=== PATIENT | female | born 1935 | race Caucasian/White ===

== ENCOUNTER 2017-01-23 11:18 | Inpatient (IN) | payer MEDICARE, OTHER ==
--- NOTE | ~2017-01-23 | CO ---
Unit #: [id number] #: [id number] Patient: JADE JUAN [id number] [facility] [address]. [place], [place] [address] [id number] MR#: [id number] NAME: JADE JUAN. ROOM: 578 Age: 81 Sex: F Admission Date: 01/23/2017 : 1935 Attending Physician: Horacio Crystal M.D. Primary Care Physician: Wesley Booker M.D. CONSULTATION REPORT HISTORY OF PRESENT ILLNESS This is an 81-year-old female who was actually admitted for an outpatient EGD and colonoscopy per Dr. Crystal. We were asked to consult for elevated blood pressure. She has a history of postural hypotension, gastritis, esophagitis, gastric reflux disease, osteoporosis, osteoarthritis, breast cancer to the left breast status post lumpectomy and a systolic murmur. She was recently seen at [facility] and was discharged on 01/15/17. She had a syncopal episode at [facility]. Her family took her to [facility]. She was diagnosed with a UTI. Medications were adjusted. I do not have any records from this. This is just from what the family reported to me. She was brought to [facility] for an outpatient EGD and colonoscopy for recent constipation and abdominal cramping. Cardiology was asked to see her for her blood pressure. She had a systolic blood pressure that ranged from 232 to 265 with the diastolic blood pressure ranging from 103 to 132. When I saw her, her blood pressure was 214/105. Orthostatics were done; lying flat her blood pressure after 10 mg of hydralazine was 197/107 and her heart rate was 67, sitting upright she was 199/98 and her heart rate was 68. The patient follows with Dr. Cortez for cardiology. PAST SURGICAL HISTORY 1. Tonsillectomy. 2. Left lumpectomy status post breast cancer. 3. Left hip replacement. 4. Several EGDs and colonoscopies back in 2003 and 2010. HOME MEDICATIONS 1. Primatene 10 mg t.i.d. 2. Protonix 20 mg daily. 3. Levothyroxine 88 mcg daily. 4. MiraLAX 17 grams daily as needed for constipation. 5. Alendronate sodium 70 mg every week for osteoporosis. 6. Ammonium lactate for dry skin topical treatment. 7. Florinef 0.1 mg daily. 8. Aspirin 81 mg daily. 9. Calcium plus vitamin D tablets 600 mg 1 t.i.d. 10. Cyclosporin eyedrops 100 mg daily, 2 drops to each eye. 11. Glucosamine/chondroitin capsules 1 capsule t.i.d. 12. Multivitamin 1 tablet daily. ALLERGIES No known allergies. Unit #: [id number] #: [id number] Patient: JADE JUAN FAMILY HISTORY Noncontributory. SOCIAL HISTORY She lives alone and she is a never-smoker. She denies any alcohol or illicit drug use. Apparently she still drives. She says she is fairly active. A lot of the questions she has to defer to her family to answer; however, she is alert and oriented. REVIEW OF SYSTEMS The only complaint she had today was dizziness, which is chronic in nature for her. She states she gets dizzy quite often, all the time. Also, complaints of an overactive bladder, having to void quite frequently, which is also chronic for her. As noted above in the HPI, she did have a recent syncopal episode in January of 2017 and was admitted to [facility] with a UTI. PHYSICAL EXAMINATION VITAL SIGNS: Pulse was 69. Blood pressure on arrival to the endoscopy unit was 162/101. On my examination before medication she was 214/105. Temperature was 96.8. Weight is 59 kg. O2 sats were 100% on 2 liters of oxygen. GENERAL: She appears an elderly female in no acute distress, although somewhat anxious. LUNGS: Clear to auscultation. NECK: Supple with no JVD noted. No thyromegaly noted. CARDIOVASCULAR: She is in a regular rate and rhythm with S1, S2 noted. She does have a 2/6 systolic ejection murmur heard best at the apex. ABDOMEN: Soft. No hepatojugular reflux noted. No hepatomegaly. Bowel sounds positive. EXTREMITIES: Extremities show no edema. HEENT: Pupils are equal, round and reactive to light and accommodation with extraocular movements intact. Head is normocephalic, atraumatic. NEUROLOGIC: She is alert and oriented x3 and answers questions appropriately and follows commands. DIAGNOSTIC TESTING LABORATORY: STAT labs were drawn this afternoon before I interviewed her, but they are pending. I do not have any labs resulted. CARDIOVASCULAR: She did have a 12-lead EKG on 01/23/17, which showed normal sinus rhythm and a prolonged Q-T. She does appear to have some mild LVH. QTc was 486. Her ventricular rate was 64 beats per minute. Of note, recent cardiac testing included Holter on 07/26/16 showing frequent supraventricular ectopy, no pauses, no significant ventricular ectopy. Lexiscan Cardiolite on 07/26/16 was normal with an EF of 83%. Old EKG on 07/27/16 showed normal sinus rhythm. Two-D echocardiogram from last admission was reviewed and showed an EF of 55% to 60%, normal wall motion, impaired relaxation, aayz-oe-swrdshkf aortic regurgitation but no aortic stenosis seen. She did have turbulent flow noted, which probably accounts for the heart murmur. IMPRESSION 1. Malignant hypertension. 2. Postural hypotension. Unit #: [id number] #: [id number] Patient: JADE JUAN PLAN Her EGD and colonoscopy were temporarily cancelled due to her malignant hypertension. She did receive 10 mg of IV hydralazine. She also had orthostatics checked lying and sitting only, as noted above in the HPI. Plan was discussed per Dr. Dickson with Dr. Crystal, and we will proceed with scheduled procedures, as she has been NPO and colon prepped. Cardiology will be very conservative with her antihypertensive medications, as she tends to bottom out. On last admission, of note, her blood pressure ranged from as low as 82/62 and as high as 210/90. We will put her on p.r.n. hydralazine at a very low dose of 2.5 mg to 5 mg q.4 hours if needed for systolic above 160; however, Dr. Dickson felt that scheduled antihypertensives would be too much for her system to take. We will check a CBC and BMP tomorrow morning and obtain records from [facility] from her recent admission there. Post procedure she will need to be in a telemetry bed, and we will follow up with her. Also, please note that Dr. Dickson did discuss with anesthesiology about the need for IV medicines to be extremely cautious and her blood pressure is extremely elevated during the procedure, she would need conservative medication administration to not drop her blood pressure too much. Post procedure we will continue to follow her. Thank you for this consultation. Dictated by... Tori Whittakre APRN for Talia Jarrell TD: 01/24/2017 13:27 JOB #: [id number] CONSULTATION REPORT Page 1 of 1 X X CONSULTATION REPORT
--- NOTE | ~2017-01-23 | OR ---
Unit #: [id number] #: [id number] Patient: JADE JUAN [id number] [address] [place], [place] [address] [id number] Emiliano MR#: [id number] NAME: JADE JUAN. ROOM: 578 Date of Procedure: 01/23/2017 Admission Date: 01/23/2017 Surgeon: Horacio Crystal M.D. : 1935 Attending Physician: Horacio Crystal M.D. Primary Care Physician: Wesley Booker M.D. OPERATIVE REPORT PROCEDURE PERFORMED Esophagogastroduodenoscopy with biopsy, colonoscopy with polypectomy, colonoscopy with biopsy. INDICATIONS FOR PROCEDURE The patient with significant generalized abdominal pain, severe constipation, weight loss, GERD symptoms, as well as epigastric pain, undergoing evaluation with upper endoscopy and colonoscopy. Her CT scan recently had been unremarkable. MEDICATIONS Monitored anesthesia. POSTOPERATIVE FINDINGS 1. Normal esophagus. 2. Mild gastritis. Biopsies taken. 3. Normal duodenum and distal duodenum. 4. Colonoscopy completed to cecum. Prep was excellent. 5. Polyp, 6 mm, transverse colon, snared and sent for histopathology. 6. Random colon biopsies taken given her symptoms. 7. Small hemorrhoids and mild diverticulosis. PLAN Symptomatic treatment. Follow up on pathology report. DESCRIPTION OF PROCEDURE The patient was explained of the procedure, risks, and benefits along with risks and benefits of anesthesia. She was brought to the endoscopy room. Propofol anesthesia was given. Bite block was placed. The scope was passed down the mouth into the esophagus, stomach, duodenum, and distal duodenum. Findings as described. Biopsies taken. Gently, I pulled the scope out of the patient's mouth. At this time, she was turned around and repositioned for colonoscopy. Rectal exam was done, which was normal. Colonoscope was lubricated, passed up the rectum, advanced under direct vision all the way to the cecum. Cecum was identified by ileocecal valve and appendiceal orifice. At this point, I started to pull the scope out carefully looking. Polyp seen in transverse colon was snared and sent for histopathology. Rest of the colonic mucosa was normal. Random biopsies were taken also. I retroflexed in the rectum, small hemorrhoids seen. Scope was gently Unit #: [id number] #: [id number] Patient: JADE JUAN pulled out. She tolerated it well. No major complications were seen. Dictated by... Talia Christy/gillian TD: 01/23/2017 22:59 JOB #: [id number] OPERATIVE REPORT Page 1 of 1 X Horacio Crystal MD X PROCEDURE OPERATIVE NOTE
--- NOTE | ~2017-01-23 | EKG ---
PATIENT: JADE JUAN UNIT #: [id number] Ventricular Rate: 64 BPM Atrial Rate: 64 BPM P-R Interval: 168 ms QRS Duration: 86 ms Q-T Interval: 472 ms QTC Calculation(Bezet): 486 ms Calculated R [place]: 23 degrees Calculated T [place]: 67 degrees Diagnosis Line: Normal sinus rhythm Diagnosis Line: Prolonged QT Diagnosis Line: Abnormal ECG Diagnosis Line: When compared with ECG of 26-JUL-2016 06:06, Diagnosis Line: No significant change was found Diagnosis Line: Confirmed by SHIVA SHARMA MD ([id number]) on 01/25/2017 Diagnosis Line: 7:41:10 AM INTERPRETING MD: ZACHARY HAWKINS
[~2017-01-23 11:18] MED LIST: FLORINEF ACETA0.1 MG PO; MOBIC PO; PAIN RELIEF325 M1 PO
[2017-01-23] MEDS ORDERED: CALCIUM + D 6001 TA1 PO (12:16)
[2017-01-23 15:25] LABS: BASOPHIL% 0.5 % (0-2.5); DIFF IND NO; EOSINOPHIL% 0.3 % (0.0-7.0); HEMATOCRIT 38.4 % (35.0-45.0); HEMOGLOBIN 12.9 gm/dL (12.0-16.0); LYMPHOCYTE% 24.9 % (17.0-45.0); MEAN CELL VOLUME 88.3 FL (83-96); MEAN CORPUSCULAR HEMOGLOBIN 29.5 PG (28-34); MEAN CORPUSCULAR HGB CONC 33.4 g/dL (30-36); MEAN PLATELET VOLUME 7.5 FL (6.5-11.5); MONOCYTE# 0.6 X10e3 (0-1.0); MONOCYTE% 7.3 % (3.0-12.0); NEUTROPHIL# 5.4 X10e3 (1.5-7.1); PLATELET COUNT 259 X10e3 (140-420); RED BLOOD COUNT 4.35 X10e (3.90-5.30); RED CELL DISTRIBUTION WIDTH 14.2 % (11.0-15.5)
[2017-01-23 16:29] LABS: ALBUMIN SERUM 4.4 g/dL (3.5-5.0); ALKALINE PHOSPHATASE 45 U/L (32-92); ALT (SGPT) 11 U/L (10-40); AST (SGOT) 19 U/L (10-42); BILIRUBIN,TOTAL 0.7 mg/dL (0.2-2.0); BLOOD UREA NITROGEN 11 mg/dL (9-23); BUN/CREATININE RATIO 15.71; CALCIUM SERUM 9.5 mg/dL (8.4-10.2); CARBON DIOXIDE 26 mmol/L (22-31); CHLORIDE 106 mmol/L (100-111); CK TOTAL 41 IU/L (26-140); CREATININE SERUM 0.7 mg/dL (0.6-1.4); GLOM FILT RATE Estimated ABOVE60 mL/min (>60); GLUCOSE FASTING 87 mg/dL (70-110); POTASSIUM 3.5 mmol/L (3.5-5.1); PROTEIN TOTAL SERUM 7.1 g/dL (6.0-8.3); SODIUM 142 mmol/L (135-145)
[2017-01-24 08:07] LABS: BASOPHIL# 0.1 X10e3 (0-0.3); BASOPHIL% 0.7 % (0-2.5); EOSINOPHIL# 0.2 X10e3 (0-0.7); EOSINOPHIL% 1.7 % (0.0-7.0); HEMATOCRIT 35.2 % (35.0-45.0); HEMOGLOBIN 11.9 gm/dL (12.0-16.0); LYMPHOCYTE# 2.5 X10e3 (1.0-3.5); LYMPHOCYTE% 27.2 % (17.0-45.0); MEAN CORPUSCULAR HEMOGLOBIN 29.4 PG (28-34); MEAN CORPUSCULAR HGB CONC 33.8 g/dL (30-36); MEAN PLATELET VOLUME 7.3 FL (6.5-11.5); MONOCYTE# 0.7 X10e3 (0-1.0); MONOCYTE% 8.2 % (3.0-12.0); NEUTROPHIL# 5.7 X10e3 (1.5-7.1); NEUTROPHIL% 62.2 % (40-75); PLATELET COUNT 258 X10e3 (140-420); RED BLOOD COUNT 4.04 X10e (3.90-5.30); RED CELL DISTRIBUTION WIDTH 14.1 % (11.0-15.5); WHITE BLOOD COUNT 9.1 X10e3 (4.0-10.5)
[2017-01-24 08:10] LABS: DIFF IND NO
[2017-01-24 09:18] LABS: BLOOD UREA NITROGEN 15 mg/dL (9-23); BUN/CREATININE RATIO 16.66; CALCIUM SERUM 9.4 mg/dL (8.4-10.2); CARBON DIOXIDE 26 mmol/L (22-31); CHLORIDE 108 mmol/L (100-111); CREATININE SERUM 0.9 mg/dL (0.6-1.4); GLOM FILT RATE Estimated ABOVE60 mL/min (>60); GLUCOSE FASTING 100 mg/dL (70-110); SODIUM 142 mmol/L (135-145)
[2017-01-24 09:24] LABS: POTASSIUM 2.7 mmol/L (3.5-5.1)
[2017-01-24 16:32] LABS: CALCIUM SERUM 9.1 mg/dL (8.4-10.2); GLOM FILT RATE Estimated 53.2 mL/min (>60); POTASSIUM 3.7 mmol/L (3.5-5.1)
[2017-04-12] MEDS ORDERED: PROAMATINE10 MG PO (09:42)
[2017-04-12] MEDS ORDERED: PROTONIX20 MG PO (09:42)
[2017-04-12] MEDS ORDERED: LEVOXYL88 MC1 PO (09:43)
[2017-04-12] MEDS ORDERED: MIRALAX17 G2 PO (09:43)
[2017-04-12] MEDS ORDERED: SKIN TREATMENT225 GM TOP (09:44)
[2017-04-12] MEDS ORDERED: ALENDRONATE SOD70 MG PO (09:44)
== END 2017-01-25 19:20 | disposition home or self-care (01) | DRG 305 ==
LOC: COPS 11:18 → C5C 14:30
PROVIDERS: Internal Medicine; Internal Medicine Cardiovascular Disease
PROC: 0DB68ZX Excision of Stomach, Via Natural or Artificial Opening Endoscopic, Diagnostic (ICD-10-PCS; principal; 2017-01-23 13:00)
PROC: 0DBL8ZX Excision of Transverse Colon, Via Natural or Artificial Opening Endoscopic, Diagnostic (ICD-10-PCS; 2017-01-23 13:00)
PROC: 0DBE8ZX Excision of Large Intestine, Via Natural or Artificial Opening Endoscopic, Diagnostic (ICD-10-PCS; 2017-01-23 16:27)
DX: I10 Essential (primary) hypertension (principal); I35.1 Nonrheumatic aortic (valve) insufficiency; D12.3 Benign neoplasm of transverse colon; Z96.642 Presence of left artificial hip joint; Z85.3 Personal history of malignant neoplasm of breast; Z79.82 Long term (current) use of aspirin; I95.1 Orthostatic hypotension; K59.00 Constipation, unspecified; R63.4 Abnormal weight loss; K29.70 Gastritis, unspecified, without bleeding; K64.8 Other hemorrhoids; K57.30 Diverticulosis of large intestine without perforation or abscess without bleeding; E87.6 Hypokalemia
CPT/HCPCS: 80048; 80053; 82550; 83735; 84484; 85025; 88305; 88312; 93005; J0360

== ENCOUNTER → 2017-02-27 | Outpatient (CLI) | payer MEDICARE, OTHER ==
[~2017-02-27] MED LIST changes: +ACETAMINOPHEN325 MG PO; +ALDACTONE25 MG PO; +ALENDRONATE SOD70 MG PO; +AMIODARONE HCL200 MG PO; +AMITIZA24 MCG PO; +AMITIZA8 MCG PO; +AMOXICILLIN PO; +BENTYL10 M1 PO; +CALCIUM + D 6001 TA1 PO; +CELEXA10 M1 PO; +CLOPIDOGREL75 MG PO; +CYCLOSPORINE 100 MG/ML OU; +FLORINEF0.1 MG PO; +GLUCOSAMINE CH1 EAC5 PO; +HYDROCODON-ACE1 EAC7 PO; +KCL PO; +LEVOXYL88 MC1 PO; +LINZESS145 MCG PO; +LO-DOSE ASPIRIN81 M1 PO; +MIRALAX17 G2 PO; +MULTI VITAMIN1 EACH PO; +NORVASC10 MG PO; +PROAMATINE10 MG PO; +PROTONIX20 MG PO; +SKIN TREATMENT225 GM TOP; +TED HOSE
[2017-02-27 16:13] LABS: BASOPHIL# 0.1 X10e3 (0-0.3); BASOPHIL% 0.6 % (0-2.5); EOSINOPHIL% 0.6 % (0.0-7.0); HEMOGLOBIN 12.1 gm/dL (12.0-16.0); LYMPHOCYTE# 2.1 X10e3 (1.0-3.5); LYMPHOCYTE% 25.2 % (17.0-45.0); MEAN CELL VOLUME 87.8 FL (83-96); MEAN CORPUSCULAR HEMOGLOBIN 29.6 PG (28-34); MEAN CORPUSCULAR HGB CONC 33.7 g/dL (30-36); MEAN PLATELET VOLUME 7.5 FL (6.5-11.5); MONOCYTE# 0.6 X10e3 (0-1.0); MONOCYTE% 7.3 % (3.0-12.0); NEUTROPHIL# 5.5 X10e3 (1.5-7.1); NEUTROPHIL% 66.3 % (40-75); PLATELET COUNT 277 X10e3 (140-420); RED CELL DISTRIBUTION WIDTH 13.9 % (11.0-15.5); WHITE BLOOD COUNT 8.3 X10e3 (4.0-10.5)
[2017-02-27 16:19] LABS: DIFF IND NO; URINE APPEARANCE CLEAR; URINE BILIRUBIN NEG (NEG); URINE BLOOD TRACE-INTACT (NEG); URINE COLOR YELLOW; URINE GLUCOSE NEG (NORM); URINE KETONE TRACE (NEG); URINE LEUKOCYTE ESTERASE 1+ (NEG); URINE NITRATE NEG (NEG); URINE PH 5.5 (5-8); URINE PROTEIN NEG (NEG); URINE SPECIFIC GRAVITY 1.015 (1.003-1.035)
[2017-02-27 16:20] LABS: MICRO INDICATED? YES
[2017-02-27 16:25] LABS: URINE BACTERIA 1+ (NEG); URINE RBC 0-2 /[HPF] (0-2); URINE WBC 25-50 /[HPF] (0-5)
[2017-02-27 16:26] LABS: URINE SQUAMOUS EPITHELIAL CELL FEW /[HPF]
[2017-02-27 16:32] LABS: BUN/CREATININE RATIO 22.72; CALCIUM SERUM 8.8 mg/dL (8.4-10.2); CREATININE SERUM 1.1 mg/dL (0.6-1.4); GLOM FILT RATE Estimated 47.1 mL/min (>60); POTASSIUM 3.5 mmol/L (3.5-5.1)
== END | disposition home or self-care (01) ==
LOC: SLAB 15:39
PROVIDERS: Internal Medicine Nephrology
DX: E55.9 Vitamin D deficiency, unspecified (principal); N18.3 Chronic kidney disease, stage 3 (moderate)
CPT/HCPCS: 36415; 80048; 81003; 82306; 85025

== ENCOUNTER → 2017-03-05 | Outpatient (CLI) | payer MEDICARE, OTHER | END | disposition home or self-care (01) | LOC: SLAB 13:52 | DX: N39.0 Urinary tract infection, site not specified (principal) | CPT/HCPCS: 36415; 87086 ==

== ENCOUNTER → 2017-03-20 | Outpatient (CLI) | payer MEDICARE, OTHER ==
[2017-03-20 14:15] LABS: BASOPHIL% 0.6 % (0-2.5); EOSINOPHIL# 0.1 X10e3 (0-0.7); EOSINOPHIL% 0.9 % (0.0-7.0); HEMATOCRIT 37.1 % (35.0-45.0); HEMOGLOBIN 12.5 gm/dL (12.0-16.0); LYMPHOCYTE# 2.2 X10e3 (1.0-3.5); LYMPHOCYTE% 26.7 % (17.0-45.0); MEAN CELL VOLUME 87.8 FL (83-96); MEAN CORPUSCULAR HEMOGLOBIN 29.6 PG (28-34); MEAN CORPUSCULAR HGB CONC 33.7 g/dL (30-36); MEAN PLATELET VOLUME 7.7 FL (6.5-11.5); MONOCYTE# 0.6 X10e3 (0-1.0); NEUTROPHIL# 5.4 X10e3 (1.5-7.1); NEUTROPHIL% 64.8 % (40-75); PLATELET COUNT 241 X10e3 (140-420); RED BLOOD COUNT 4.22 X10e (3.90-5.30); RED CELL DISTRIBUTION WIDTH 13.9 % (11.0-15.5); WHITE BLOOD COUNT 8.3 X10e3 (4.0-10.5)
[2017-03-20 14:21] LABS: DIFF IND NO
[2017-03-20 14:33] LABS: BUN/CREATININE RATIO 27.77; CALCIUM SERUM 9.2 mg/dL (8.4-10.2); CREATININE SERUM 0.9 mg/dL (0.6-1.4); POTASSIUM 3.6 mmol/L (3.5-5.1)
[2017-03-20 15:39] LABS: URINE APPEARANCE CLEAR; URINE BILIRUBIN NEG (NEG); URINE BLOOD TRACE-INTACT (NEG); URINE COLOR YELLOW; URINE GLUCOSE NEG (NORM); URINE KETONE NEG (NEG); URINE LEUKOCYTE ESTERASE 2+ (NEG); URINE NITRATE NEG (NEG); URINE PH 6.5 (5-8); URINE PROTEIN NEG (NEG); URINE UROBILINOGEN 0.2 MG/DL (NORM)
[2017-03-20 15:53] LABS: MICRO INDICATED? YES
[2017-03-20 17:33] LABS: URINE BACTERIA 1+ (NEG); URINE RBC 0-2 /[HPF] (0-2)
== END | disposition home or self-care (01) ==
LOC: SLAB 13:47
PROVIDERS: Internal Medicine Nephrology
DX: N18.3 Chronic kidney disease, stage 3 (moderate) (principal); E55.9 Vitamin D deficiency, unspecified
CPT/HCPCS: 36415; 80048; 81003; 82306; 85025

== ENCOUNTER 2017-04-07 11:42 | Emergency (ER) | payer MEDICARE, OTHER ==
--- NOTE | ~2017-04-07 | CT4 ---
[facility] A Service of [facility] RADIOLOGY TEXT RESULTS PATIENT: JADE JUAN LOCATION: [facility] : 37 UNIT #: [id number] AGE: [address]: Azeb Tracy MD SEX: F ORDER DR: [id number] [facility]. [place], [place] [address] [id number] MR#: [id number] Acc #: [id number] NAME: JADE JUAN : 1935 SEX: F STUDY DATE/TIME: 04/07/2017 13:53 UNIT: [facility] ROOM: STUDY DESCRIPTION: CT Abd and Pelv Wo Cont Attending Physician: Azeb Tracy M.D. Ordering Physician: Azeb Tracy M.D. Primary Care Physician: Wesley Booker M.D. MEDICAL IMAGING REPORT This report is preliminary unless electronic signature is present EXAM CT abdomen and pelvis without contrast INDICATION Abdominal pain, weight loss for 3 weeks which is getting worse. COMPARISON 07/16/2016 Axial 3 mm images were obtained through the abdomen and pelvis with oral contrast only. This CT exam was performed with one or more of the following radiation dose reduction techniques: automatic exposure control, adjustment of mA and/or kV according to patient size, and iterative reconstruction. FINDINGS The lung bases are clear. The gallbladder contains a peripherally calcified stone measuring 15 mm in diameter. The gallbladder is otherwise normal. The liver, spleen, pancreas and adrenal glands are normal. The left kidney is normal. The right kidney has a prominent renal pelvis but the ureter is normal in size and there is no hydronephrosis visible. There is an infrarenal abdominal aortic aneurysm measuring 3.7 cm in diameter that is unchanged from 07/25/2016. The bowel is normal. The bladder, uterus and adnexal regions are normal and there is a left hip prosthesis present. The bones are unremarkable. IMPRESSION 1. Stable aortic aneurysm measuring about 3.7 cm in diameter. 2. There is no bowel obstruction or inflammation. No mass is visible. 3. A 15 mm gallstone. 4. Otherwise normal. [facility] A Service of [facility] RADIOLOGY TEXT RESULTS PATIENT: JADE JUAN LOCATION: [facility] : 37 UNIT #: [id number] AGE: [address]: Azeb Tracy MD SEX: F ORDER DR: Dictated by... Caleb Martinez M.D. THIS IS AN ELECTRONICALLY VERIFIED REPORT Caleb Martinez M.D. at 04/08/2017 7:27 AM DERIAN/lex TD: 04/07/2017 22:56 JOB #: [id number] MEDICAL IMAGING REPORT Page 1 of 1 COPY
[~2017-04-07 11:42] MED LIST changes: -ACETAMINOPHEN325 MG PO; -ALDACTONE25 MG PO; -ALENDRONATE SOD70 MG PO; -AMIODARONE HCL200 MG PO; -AMITIZA24 MCG PO; -AMITIZA8 MCG PO; -AMOXICILLIN PO; -BENTYL10 M1 PO; -CELEXA10 M1 PO; -CLOPIDOGREL75 MG PO; -CYCLOSPORINE 100 MG/ML OU; -FLORINEF0.1 MG PO; -GLUCOSAMINE CH1 EAC5 PO; -HYDROCODON-ACE1 EAC7 PO; -KCL PO; -LEVOXYL88 MC1 PO; -LINZESS145 MCG PO; -LO-DOSE ASPIRIN81 M1 PO; -MIRALAX17 G2 PO; -MULTI VITAMIN1 EACH PO; -NORVASC10 MG PO; -PROAMATINE10 MG PO; -PROTONIX20 MG PO; -SKIN TREATMENT225 GM TOP; -TED HOSE
[2017-04-07 12:47] LABS: BASOPHIL# 0.1 X10e3 (0-0.3); BASOPHIL% 0.8 % (0-2.5); EOSINOPHIL# 0.1 X10e3 (0-0.7); EOSINOPHIL% 0.9 % (0.0-7.0); HEMOGLOBIN 12.9 gm/dL (12.0-16.0); LYMPHOCYTE# 1.8 X10e3 (1.0-3.5); LYMPHOCYTE% 23.2 % (17.0-45.0); MEAN CELL VOLUME 87.9 FL (83-96); MEAN CORPUSCULAR HEMOGLOBIN 29.1 PG (28-34); MEAN CORPUSCULAR HGB CONC 33.1 g/dL (30-36); MEAN PLATELET VOLUME 7.4 FL (6.5-11.5); MONOCYTE# 0.5 X10e3 (0-1.0); NEUTROPHIL# 5.5 X10e3 (1.5-7.1); NEUTROPHIL% 69.1 % (40-75); PLATELET COUNT 240 X10e3 (140-420); RED BLOOD COUNT 4.43 X10e (3.90-5.30); RED CELL DISTRIBUTION WIDTH 13.9 % (11.0-15.5)
[2017-04-07 13:03] LABS: DIFF IND NO
[2017-04-07 13:11] LABS: ALBUMIN SERUM 4.4 g/dL (3.5-5.0); BILIRUBIN, DIRECT 0.1 mg/dL (0.0-0.2); BILIRUBIN,INDIRECT 0.8 mg/dL (0.0-0.9); BILIRUBIN,TOTAL 0.9 mg/dL (0.2-2.0); BUN/CREATININE RATIO 20.83; CALCIUM SERUM 9.1 mg/dL (8.4-10.2); CREATININE SERUM 1.2 mg/dL (0.6-1.4); GLOM FILT RATE Estimated 42.4 mL/min (>60); POTASSIUM 3.8 mmol/L (3.5-5.1); PROTEIN TOTAL SERUM 7.3 g/dL (6.0-8.3)
[2017-04-07 13:49] LABS: URINE SOURCE CLEAN CATCH
[2017-04-07 13:56] LABS: URINE APPEARANCE CLEAR; URINE BILIRUBIN NEG (NEG); URINE BLOOD TRACE (NEG); URINE COLOR YELLOW; URINE GLUCOSE NEG (NEG); URINE KETONE NEG (NEG); URINE LEUKOCYTE ESTERASE 3+ (NEG); URINE NITRATE NEG (NEG); URINE PROTEIN NEG (NEG)
[2017-04-07 13:57] LABS: CULTURE INDICATED? YES; URBCS1 AUWI 0-2 /[HPF] (0-2); URINE BACTERIA AUWI NEG (NEGATIVE); URINE SQUAMOUS EPITHELIAL CELL OCC /[HPF]; UWBCS1 AUWI 25-50 (0-5)
[2017-04-12] MEDS ORDERED: PROAMATINE10 MG PO (09:42)
[2017-04-12] MEDS ORDERED: PROTONIX20 MG PO (09:42)
[2017-04-12] MEDS ORDERED: LEVOXYL88 MC1 PO (09:43)
[2017-04-12] MEDS ORDERED: MIRALAX17 G2 PO (09:43)
[2017-04-12] MEDS ORDERED: ALENDRONATE SOD70 MG PO (09:44)
[2017-04-12] MEDS ORDERED: SKIN TREATMENT225 GM TOP (09:44)
== END 2017-04-07 16:42 | disposition home or self-care (01) ==
LOC: CED 11:42
PROVIDERS: Student in an Organized Health Care Education/Training Program
DX: K80.70 Calculus of gallbladder and bile duct without cholecystitis without obstruction (principal); I10 Essential (primary) hypertension; Z98.890 Other specified postprocedural states; Z79.899 Other long term (current) drug therapy
CPT/HCPCS: 36415; 74176; 80048; 80076; 81003; 82150; 83605; 83690; 85025; 87086; 96361; 96374; 96375; 99284; C9113; J2270; J2405

== ENCOUNTER 2017-04-12 09:49 | Observation (INO) | payer MEDICARE, OTHER ==
--- NOTE | ~2017-04-12 | EKG ---
PATIENT: JADE JUAN UNIT #: [id number] Ventricular Rate: 53 BPM Atrial Rate: 53 BPM P-R Interval: 178 ms QRS Duration: 82 ms Q-T Interval: 536 ms QTC Calculation(Bezet): 502 ms P [place]: 68 degrees Calculated R [place]: 8 degrees Calculated T [place]: 58 degrees Diagnosis Line: Sinus bradycardia Diagnosis Line: Otherwise normal ECG Diagnosis Line: When compared with ECG of 23-JAN-2017 14:57, Diagnosis Line: No significant change was found Diagnosis Line: Confirmed by SHIVA SHARMA MD ([id number]) on 04/14/2017 Diagnosis Line: 4:30:04 PM INTERPRETING MD: ZACHARY HAWKINS
--- NOTE | ~2017-04-12 | CO ---
Unit #: [id number] #: [id number] Patient: JADE JUAN [id number] [place], [place] [address] [id number] I MR#: [id number] NAME: JADE JUAN ROOM: 46 Age: 82 Sex: F Admission Date: 04/12/2017 : 1935 Attending Physician: Chaitanya Blunt M.D. Primary Care Physician: Macarena Doctor Not In System Consultation Date: 04/12/2017 CONSULTATION REPORT REASON FOR CONSULTATION Hypertension and syncope. HISTORY OF PRESENT ILLNESS The patient is an 82-year-old female with past medical history of postural hypotension, hypertension, GERD, osteoporosis, osteoarthritis, breast cancer, who was admitted by Dr. Blunt following laparoscopic cholecystectomy. The patient states that she has had about a six month history of abdominal pain that has been intermittent in nature. She was seen in the emergency department on April 07, 2017. A CT of the abdomen and pelvis was done and showed a 15 mm gallstone. She was discharged home with surgery followup. She underwent laparoscopic cholecystectomy today. Postoperatively the patient complained of feeling like she would "pass out." She also had elevated blood pressure, I was told. Blood pressures in [facility] have ranged from 146 to 166 over 68 to 89. Per my discussion with nursing, she received labetalol and hydralazine intraoperatively. Most recent blood pressure is 166/74. The patient states that she has had feeling of lightheadedness and syncope for at least several months. She was hospitalized at [facility] following a syncopal episode in January. She was scheduled for EGD and colonoscopy January 23, 2017. Blood pressure was noted to be high and so Cardiology was consulted. Per their note she has a history of postural hypotension. She has seen Dr. Dickson as an outpatient regarding this issue as well. She denies any current chest pain. No feelings of lightheadedness. No fever. No cough or cold symptoms. Abdominal pain is controlled. No change in her weight. PAST MEDICAL HISTORY 1. Admission to [facility] January 23, 2017 for EGD and colonoscopy. She was seen by Cardiology regarding hypertension. 2. History of postural hypotension. 3. GERD. 4. Osteoporosis. 5. Osteoarthritis. 6. Breast cancer status post lumpectomy. 7. Admission to [facility] January 15, 2017 for syncope. 8. Per Cardiology note the patient had a 2D echo in 2016 that showed an ejection fraction of 55% to 60% with mild to moderate aortic regurgitation but no aortic stenosis. 9. Cardiolite December 26, 2015 showed no stress-induced ischemia. EF was calculated to be 83%. Unit #: [id number] #: [id number] Patient: JADE JUAN PAST SURGICAL HISTORY 1. EGD and colonoscopy. 2. Tonsillectomy. 3. Left breast lumpectomy. 4. Left hip surgery. SOCIAL HISTORY The patient lives alone. There is no tobacco or alcohol use. FAMILY HISTORY Family history is notable for her dad having a stroke. ALLERGIES No known allergies. HOME MEDICATIONS 1. Midodrine 10 mg t.i.d. 2. Protonix 20 mg daily. 3. Levothyroxine 112 mcg daily. 4. MiraLAX 17 g daily p.r.n. 5. Alendronate 70 mg weekly. 6. Ammonium lactate daily p.r.n. 7. Florinef 0.1 mg daily. 8. Aspirin 81 mg daily. 9. Calcium plus D daily. 10. Cyclosporin 100 mg eye drops. 11. Glucosamine t.i.d. 12. Multivitamin daily. 13. Amitiza 24 mcg b.i.d. 14. Potassium 20 mEq daily. 15. Amiodarone 200 mg daily. 16. Bentyl 10 mg b.i.d. REVIEW OF SYSTEMS A complete review of systems is negative except as indicated in the HPI. The patient states that her last syncopal episode was on April 04, 2017 and occurred while walking. DIAGNOSTIC STUDIES CARDIOVASCULAR: EKG from January 23, 2017 showed normal sinus rhythm with a rate of 64 beats per minute. PHYSICAL EXAMINATION VITAL SIGNS: Temperature is 97.8. Pulse 57. Respirations 16. Blood pressure 146/89. GENERAL: The patient is a female who is awake and alert, in no acute distress. HEENT: The head is atraumatic. Mucous membranes are moist. NECK: Neck is supple. Trachea is midline. CARDIOVASCULAR: Regular rate and rhythm. LUNGS: Lungs are clear to auscultation bilaterally with no increased work of breathing. ABDOMEN: The patient does have a bandage as well as Steri-Strips on the abdomen. Bowel sounds are somewhat decreased. Abdomen is appropriately tender. EXTREMITIES: Nontender with no pedal edema. NEUROLOGIC: The patient is awake and alert. She follows commands. Unit #: [id number] #: [id number] Patient: JADE JUAN PSYCHIATRIC: Mood and affect are normal. The patient is cooperative. SKIN: Skin of examined areas is warm and dry. ASSESSMENT The patient is an 82-year-old female with: 1. Status post laparoscopic cholecystectomy. 2. Syncope. This does not appear to be a new problem. She was hospitalized in January at [facility] for this issue (no records). She has also been seeing Dr. Dickson. She does have a known history of postural hypotension and is on midodrine and Florinef which she has been taking as prescribed. 3. Hypertension. 4. Gastroesophageal reflux disease. 5. Osteoporosis. 6. Osteoarthritis. 7. Breast cancer status post lumpectomy. PLAN Regarding syncope and hypertension I have placed the patient on a monitor. I have also ordered an EKG as well as cardiac enzymes. Will also check labs. I have ordered orthostatics. I have asked for the records from [facility]. I have also asked Dr. Dickson, the patient's speech and language assistant, to see the patient regarding this issue. Additionally will place the patient on bedrest and fall precautions. Thank you very much for the consultation. We will follow the patient along closely with you. Dictated by... Lara Arevalo M.D. TR/kaylee TD: 04/12/2017 23:07 JOB #: [id number] CONSULTATION REPORT Page 1 of 1 X Lara Arevalo MD X CONSULTATION REPORT
--- NOTE | ~2017-04-12 | OR ---
Unit #: [id number] #: [id number] Patient: JADE JUAN [id number] [address] [address] [id number] Emiliano MR#: [id number] NAME: JADE JUAN ROOM: 462 Date of Procedure: 04/12/2017 Admission Date: 04/12/2017 Surgeon: Chaitanya Blunt M.D. : 1935 Attending Physician: Chaitanya Blunt M.D. Primary Care Physician: Generic Doctor Not In System OPERATIVE REPORT PREOPERATIVE DIAGNOSIS Cholecystitis. POSTOPERATIVE DIAGNOSIS Cholecystitis. PROCEDURE PERFORMED Laparoscopic cholecystectomy. ASSISTANT Alli Goel M.D. ANESTHESIA General endotracheal anesthesia. ESTIMATED BLOOD LOSS Minimal. IV FLUIDS 800 crystalloid. COMPLICATIONS None. INDICATIONS FOR PROCEDURE The patient is an 82-year-old with signs and symptoms consistent with acute cholecystitis. DESCRIPTION OF PROCEDURE The patient was taken to the operating theater and placed in supine position. General anesthesia was induced. Her abdomen was prepped and draped. A 5-mm Optiview trocar was placed in the right upper quadrant without difficulty. The abdomen was insufflated to 15 mmHg with CO2. Under direct vision, I placed a subxiphoid 10 mm, right lateral 5 mm, and umbilical 5 mm. General inspection of the abdomen revealed acute cholecystitis with distended gallbladder and multiple adhesions. This was retracted up over the liver. I dissected the neck of the gallbladder and identified the cystic duct. Its junction with the gallbladder was confirmed. It was thus skeletonized, doubly hemoclipped, and divided. The cystic artery laid immediately posterior. This was skeletonized, doubly hemoclipped, and divided. The gallbladder was removed from the gallbladder bed with Bovie electrocautery and delivered via the subxiphoid Unit #: [id number] #: [id number] Patient: JADE JUAN port. Hemostasis was adequate. I irrigated with normal saline and aspirate all fluids dry. The ports were removed under direct vision with no evidence of abdominal hemorrhage. The fascia was closed with 0 Vicryl and skin with 4-0 Vicryl. The patient tolerated the procedure well and sent to recovery room in good condition. Dictated by... Talia Gilbert/gillian LLOYD: 04/12/2017 17:49 TD: 04/12/2017 23:26 JOB #: [id number] OPERATIVE REPORT Page 1 of 1 X Chaitanya Blunt MD PROCEDURE OPERATIVE NOTE
--- NOTE | ~2017-04-12 | CO ---
Unit #: [id number] #: [id number] Patient: JADE JUAN [id number] [address] [place], [place] [address] [id number] MR#: [id number] NAME: JADE JUAN ROOM: 46 Age: 82 Sex: F Admission Date: 04/12/2017 : 1935 Attending Physician: Chaitanya Blunt M.D. Consultation Date: 04/13/2017 CONSULTATION REPORT REASON FOR CONSULTATION Syncope and postural hypotension. HISTORY OF PRESENT ILLNESS This is an 82-year-old white female, known to our group with a past medical history of recent EGD and colonoscopy in 01/23/2017, which revealed mild gastritis, colon polyps, small hemorrhoids, and mild diverticulosis. Cardiology was asked to follow the patient the day of the procedure because of hypotension. The patient is known to have a longstanding history of postural hypotension. She does have hypertension in a supine position. She has a significant drop in her blood pressure with sitting and standing. She is on Florinef and ProAmatine as well as ROBB hose. Despite management with medications and ROBB hose, she continues to have hypotension and has had multiple episodes of syncope. She had a 2D echocardiogram in 07/2016, which revealed a normal ejection fraction of 55% to 60% with [id number] aortic regurgitation and impaired LV relaxation. 24-hour Holter monitor was recently completed in the office on 03/18/2017, which revealed normal sinus rhythm with a heart rate varying from 46 to 102 beats per minute. There was up to 1.8 second pause. There was also 5 to 10 beat runs of atrial tachycardia. She was started on amiodarone after the Holter monitor was completed. She presented to the hospital on 04/12/2017 for an outpatient lap marco due to gallstones. She underwent the procedure and was noted to have hypertension lying supine. Orthostatic vital signs were obtained and there was a 50 mmHg drop. Cardiology was consulted for further evaluation. The patient denies chest pain. There are no reports of shortness of breath, PND, or orthopnea. She denies palpitations. She does admit to history of dizziness. She states that her last syncopal episode was last week. She can feel precipitating dizziness and can usually sit down. However, there have been times where she has fell and passed out. PAST MEDICAL HISTORY 1. 24-hour Holter monitor on 03/18/2017 revealed normal sinus rhythm with an average heart rate of 68 beats per minute. Heart rate ranged from 46 to 102 beats per minute. Pause of 1.8 seconds. 5 to 10 beat runs of atrial tachycardia. 2. 2D echocardiogram in 07/2016 revealed an ejection fraction of 55% to 60%. Impaired LV relaxation. Mild to moderate aortic regurgitation. 3. Lexiscan Cardiolite stress test on 07/26/2016 revealed no ischemia. 4. Previous 24-hour Holter monitor on 10/25/2016 revealed frequent supraventricular ectopy. 5. Recurrent syncope with postural hypotension, on Florinef and Unit #: [id number] #: [id number] Patient: JADE JUAN. 6. Hypertension. 7. GERD. 8. Status post EGD on 01/23/2017 with mild gastritis, colon polyps, small hemorrhoids, and mild diverticulosis. 9. History of breast cancer. 10. Hypothyroidism. 11. Osteoporosis. 12. Nonsmoker. PAST SURGICAL HISTORY 1. EGD and colonoscopy as noted above. 2. Lumpectomy. 3. Left total hip arthroplasty. HOME MEDICATIONS Florinef 0.1 mg p.o. daily, ProAmatine 10 mg p.o. t.i.d., amiodarone 200 mg p.o. daily, Bentyl 10 mg p.o. b.i.d., MiraLax 17 g p.o. daily, ammonium lactate 225 g topical daily, alendronate sodium 70 mg p.o. every week for osteoporosis, Sandimmune 100 mg OU daily, multivitamin 1 tablet p.o. daily, aspirin 81 mg p.o. daily, glucosamine capsule unknown frequency, amoxicillin unknown dose and frequency, Amitiza 24 mcg p.o. b.i.d., Protonix 20 mg p.o. daily, calcium with vitamin D 1 tablet p.o. t.i.d., potassium chloride 20 mEq p.o. daily, levothyroxine 112 mcg p.o. daily, ROBB hose. ALLERGIES No known drug allergies. SOCIAL HISTORY The patient is a nonsmoker. There are no reports of alcohol or illicit drug use. FAMILY HISTORY Noncontributory for heart disease. REVIEW OF SYSTEMS A 10-point review of systems negative except for details noted above in HPI. PHYSICAL EXAMINATION VITAL SIGNS: Temperature 98.5, pulse 50, blood pressure 195/95. CONSTITUTIONAL: This is an 82-year-old white female, in no acute distress. SKIN: Warm and dry. NECK: Supple. No jugular venous distention. No hepatojugular reflux. Normal carotid upstrokes. No carotid bruits auscultated. HEART: S1 and S2. Regular rate and rhythm. No murmurs, rubs, or gallops. LUNGS: Bilateral breath sounds have good air entry throughout all lung jacobs. Respirations are even and nonlabored. No rales, rhonchi, or wheezes. ABDOMEN: Soft and nondistended. Positive tenderness. Positive bowel sounds auscultated x4 quadrants. No ascites noted. EXTREMITIES: Bilateral lower extremities have no pretibial pitting edema. DP and PT pulses are 2+. Capillary refill is less than 2 seconds. DIAGNOSTIC STUDIES Unit #: [id number] #: [id number] Patient: JADE JUAN LABORATORY RESULTS: White blood cell count 11.1, hemoglobin 11, hematocrit 33.9, and platelets 207. Sodium 142, potassium 4.0, chloride 109, CO2 of 25, BUN 18, creatinine 1.2, glucose 106, magnesium 1.9, protein 5.9, albumin 3.8, AST 33, ALT 21, alkaline phos 52. Troponin 0.03 and 0.03. Urinalysis, negative. CARDIOVASCULAR STUDIES: Electrocardiogram reveals sinus bradycardia with a ventricular rate of 53 beats per minute. No acute ST or T-wave changes. QTc prolonged at 502 msec. IMPRESSION 1. Status post laparoscopic cholecystectomy due to gallstones. 2. Recurrent syncope. 3. Postural hypotension. 4. Abnormal Holter in 03/2017 with up to 1.8 second pause and 5 to 10 beat runs of atrial tachycardia. 5. Left ventricular ejection fraction of 55% to 60% with impaired LV relaxation and mild to moderate aortic regurgitation in 07/2016. 6. Normal Lexiscan Cardiolite stress test in 2016. 7. History of breast cancer. 8. Nonsmoker. PLAN 1. The patient presented to the hospital for an elective gallbladder surgery. She was admitted overnight for observation. Cardiology was consulted due to supine hypertension and postural hypotension. 2. Her Florinef will be increased and she will be continued on ProAmatine as dosed. 3. Will ambulate in the hallway and recheck orthostatics vitals. 4. The patient has had a significant testing recently and no other testing is needed at this time. 5. She is cleared for discharge from a cardiac standpoint. She has been advised to drink Gatorade daily and to follow up with our office as an outpatient. Dictated by... Lakshmi Morejon APRN for Talia Ramey TD: 04/16/2017 08:13 JOB #: [id number] CONSULTATION REPORT Page 1 of 1 X X CONSULTATION REPORT
[~2017-04-12 09:49] MED LIST changes: +ALENDRONATE SOD70 MG PO; +LEVOXYL88 MC1 PO; +MIRALAX17 G2 PO; +PROAMATINE10 MG PO; +PROTONIX20 MG PO; +SKIN TREATMENT225 GM TOP
[2017-04-12] MEDS ORDERED: AMOXICILLIN PO (10:43)
[2017-04-12] MEDS ORDERED: LO-DOSE ASPIRIN81 M1 PO (12:16)
[2017-04-12] MEDS ORDERED: FLORINEF0.1 MG PO (12:16)
[2017-04-12] MEDS ORDERED: CYCLOSPORINE 100 MG/ML OU (12:17)
[2017-04-12] MEDS ORDERED: MULTI VITAMIN1 EACH PO (12:18)
[2017-04-12] MEDS ORDERED: GLUCOSAMINE CH1 EAC5 PO (12:18)
[2017-04-12] MEDS ORDERED: AMITIZA8 MCG PO ×2 (12:26→18:01)
[2017-04-12] MEDS ORDERED: AMIODARONE HCL200 MG PO (12:26)
[2017-04-12] MEDS ORDERED: BENTYL10 M1 PO (12:27)
[2017-04-12] MEDS ORDERED: KCL PO (18:03)
[2017-04-12] MEDS ORDERED: TED HOSE (18:05)
[2017-04-12 20:28] LABS: HEMATOCRIT 35.9 % (35.0-45.0); HEMOGLOBIN 11.4 gm/dL (12.0-16.0); MEAN CELL VOLUME 89.4 FL (83-96); MEAN CORPUSCULAR HEMOGLOBIN 28.5 PG (28-34); MEAN CORPUSCULAR HGB CONC 31.9 g/dL (30-36); MEAN PLATELET VOLUME 7.4 FL (6.5-11.5); RED BLOOD COUNT 4.01 X10e (3.90-5.30); RED CELL DISTRIBUTION WIDTH 14.3 % (11.0-15.5); WHITE BLOOD COUNT 12.6 X10e3 (4.0-10.5)
[2017-04-12 20:45] LABS: ALBUMIN SERUM 4.1 g/dL (3.5-5.0); BILIRUBIN,TOTAL 0.5 mg/dL (0.2-2.0); BUN/CREATININE RATIO 17.27; CALCIUM SERUM 8.7 mg/dL (8.4-10.2); CREATININE SERUM 1.1 mg/dL (0.6-1.4); GLOM FILT RATE Estimated 47.1 mL/min (>60); MAGNESIUM 2.1 mg/dL (1.6-3.0); POTASSIUM 4.1 mmol/L (3.5-5.1); PROTEIN TOTAL SERUM 6.7 g/dL (6.0-8.3)
[2017-04-13 02:17] LABS: URINE SOURCE CLEAN CATCH
[2017-04-13 02:21] LABS: URINE APPEARANCE CLOUDY; URINE BILIRUBIN NEG (NEG); URINE BLOOD TRACE (NEG); URINE COLOR YELLOW; URINE GLUCOSE NEG (NEG); URINE KETONE NEG (NEG); URINE LEUKOCYTE ESTERASE NEG (NEG); URINE NITRATE NEG (NEG); URINE PROTEIN NEG (NEG); URINE SPECIFIC GRAVITY 1.028 (1.003-1.035); URINE UROBILINOGEN 0.2 MG/DL (NEG)
[2017-04-13 02:24] LABS: URINE BACTERIA AUWI NEG (NEGATIVE); URINE SQUAMOUS EPITHELIAL CELL OCC /[HPF]
[2017-04-13 02:31] LABS: U HYALINE CASTS AUWI 0-2 /[LPF]
[2017-04-13 02:59] LABS: HEMATOCRIT 33.9 % (35.0-45.0); MEAN CELL VOLUME 89.3 FL (83-96); MEAN CORPUSCULAR HEMOGLOBIN 29.1 PG (28-34); MEAN CORPUSCULAR HGB CONC 32.5 g/dL (30-36); MEAN PLATELET VOLUME 7.7 FL (6.5-11.5); RED BLOOD COUNT 3.8 X10e (3.90-5.30); RED CELL DISTRIBUTION WIDTH 14.2 % (11.0-15.5); WHITE BLOOD COUNT 11.1 X10e3 (4.0-10.5)
[2017-04-13 03:48] LABS: CK TOTAL 57 IU/L (26-140)
[2017-04-13 03:50] LABS: ALBUMIN SERUM 3.8 g/dL (3.5-5.0); BILIRUBIN,TOTAL 0.5 mg/dL (0.2-2.0); CALCIUM SERUM 8.9 mg/dL (8.4-10.2); CREATININE SERUM 1.2 mg/dL (0.6-1.4); GLOM FILT RATE Estimated 42.4 mL/min (>60); MAGNESIUM 1.9 mg/dL (1.6-3.0); PROTEIN TOTAL SERUM 5.9 g/dL (6.0-8.3)
[2017-04-13 09:36] LABS: %MB 1.9 % (0.0-4.0); MB 1.2 ng/ml
[2017-04-13] MEDS ORDERED: ACETAMINOPHEN325 MG PO (12:09)
== END 2017-04-13 14:06 | disposition home health service (06) ==
LOC: CSUR 09:49 → CPACUOF 17:44 → CSUR 17:44 → C4C 17:51 → CPACUOF 17:51 → C4C 18:12 → CPACUOF 18:12 → C4C 04-13 14:06 → CSUR 04-29 09:00
PROVIDERS: Family Medicine; Surgery
PROC: 0FT44ZZ Resection of Gallbladder, Percutaneous Endoscopic Approach (ICD-10-PCS; principal; 2017-04-12 12:00)
DX: K80.10 Calculus of gallbladder with chronic cholecystitis without obstruction (principal); R00.1 Bradycardia, unspecified; I95.1 Orthostatic hypotension; K21.9 Gastro-esophageal reflux disease without esophagitis; K58.9 Irritable bowel syndrome, unspecified; E03.9 Hypothyroidism, unspecified; I10 Essential (primary) hypertension; M81.0 Age-related osteoporosis without current pathological fracture; Z79.82 Long term (current) use of aspirin; Z79.899 Other long term (current) drug therapy; R01.1 Cardiac murmur, unspecified; R39.15 Urgency of urination; Z87.440 Personal history of urinary (tract) infections; Z85.3 Personal history of malignant neoplasm of breast; Z96.642 Presence of left artificial hip joint; Z98.42 Cataract extraction status, left eye; Z98.41 Cataract extraction status, right eye; Z82.3 Family history of stroke; Z82.49 Family history of ischemic heart disease and other diseases of the circulatory system; Z98.890 Other specified postprocedural states
CPT/HCPCS: 80053; 81003; 82550; 82553; 83735; 84443; 84484; 85027; 87086; 88304; 93005; 96374; G0378; J0330; J0360; J0690; J2270; J2405; J3010

== ENCOUNTER 2017-04-17 15:17 | Emergency (ER) | payer MEDICARE, OTHER ==
--- NOTE | ~2017-04-17 | EKG ---
PATIENT: JADE JUAN UNIT #: [id number] Ventricular Rate: 61 BPM Atrial Rate: 61 BPM P-R Interval: 172 ms QRS Duration: 86 ms Q-T Interval: 490 ms QTC Calculation(Bezet): 493 ms Calculated R [place]: 47 degrees Calculated T [place]: 61 degrees Diagnosis Line: Normal sinus rhythm Diagnosis Line: Prolonged QT Diagnosis Line: Abnormal ECG Diagnosis Line: When compared with ECG of 12-APR-2017 19:57, Diagnosis Line: No significant change was found Diagnosis Line: Confirmed by UNIQUE DURAN MD ([id number]) on Diagnosis Line: 04/19/2017 3:42:36 PM INTERPRETING MD: SOWMYA
[~2017-04-17 15:17] MED LIST changes: +ACETAMINOPHEN325 MG PO; +AMIODARONE HCL200 MG PO; +AMITIZA8 MCG PO; +AMOXICILLIN PO; +BENTYL10 M1 PO; +CYCLOSPORINE 100 MG/ML OU; +FLORINEF0.1 MG PO; +GLUCOSAMINE CH1 EAC5 PO; +KCL PO; +LO-DOSE ASPIRIN81 M1 PO; +MULTI VITAMIN1 EACH PO; +TED HOSE
[2017-04-17 15:40] LABS: BASOPHIL# 0.1 X10e3 (0-0.3); BASOPHIL% 0.9 % (0-2.5); EOSINOPHIL# 0.1 X10e3 (0-0.7); EOSINOPHIL% 1.3 % (0.0-7.0); HEMATOCRIT 36.7 % (35.0-45.0); HEMOGLOBIN 12.1 gm/dL (12.0-16.0); LYMPHOCYTE% 20.4 % (17.0-45.0); MEAN CELL VOLUME 88.2 FL (83-96); MEAN CORPUSCULAR HGB CONC 32.9 g/dL (30-36); MEAN PLATELET VOLUME 7.4 FL (6.5-11.5); MONOCYTE# 0.7 X10e3 (0-1.0); NEUTROPHIL# 6.8 X10e3 (1.5-7.1); NEUTROPHIL% 70.4 % (40-75); PLATELET COUNT 274 X10e3 (140-420); RED BLOOD COUNT 4.16 X10e (3.90-5.30); RED CELL DISTRIBUTION WIDTH 13.9 % (11.0-15.5); WHITE BLOOD COUNT 9.7 X10e3 (4.0-10.5)
[2017-04-17 15:42] LABS: DIFF IND NO
[2017-04-17 16:07] LABS: ALBUMIN SERUM 4.4 g/dL (3.5-5.0); BILIRUBIN, DIRECT 0.1 mg/dL (0.0-0.2); BILIRUBIN,INDIRECT 0.8 mg/dL (0.0-0.9); BILIRUBIN,TOTAL 0.9 mg/dL (0.2-2.0); BUN/CREATININE RATIO 13.33; CALCIUM SERUM 9.2 mg/dL (8.4-10.2); CREATININE SERUM 1.2 mg/dL (0.6-1.4); GLOM FILT RATE Estimated 42.4 mL/min (>60); POTASSIUM 3.3 mmol/L (3.5-5.1); PROTEIN TOTAL SERUM 7.6 g/dL (6.0-8.3)
[2017-04-17 19:18] LABS: POC - CKMB <1.0 ng/mL (0.0-7.9); POC - TROPONIN <0.05 ng/mL (<=0.05)
== END 2017-04-17 20:30 | disposition home or self-care (01) ==
LOC: CED 15:17
PROVIDERS: Emergency Medicine
DX: I95.1 Orthostatic hypotension (principal); R00.1 Bradycardia, unspecified; Z90.49 Acquired absence of other specified parts of digestive tract; Z79.899 Other long term (current) drug therapy; Z79.82 Long term (current) use of aspirin
CPT/HCPCS: 36415; 80048; 80076; 82553; 84484; 85025; 93005; 99285

== ENCOUNTER → 2017-04-24 | Outpatient (CLI) | payer MEDICARE, OTHER ==
[~2017-04-24] MED LIST changes: +ALDACTONE25 MG PO; +AMITIZA24 MCG PO; +CELEXA10 M1 PO; +CLOPIDOGREL75 MG PO; +HYDROCODON-ACE1 EAC7 PO; +LINZESS145 MCG PO; +NORVASC10 MG PO
--- NOTE | ~2017-04-24 | CT14 ---
[facility] A Service of [facility] RADIOLOGY TEXT RESULTS PATIENT: JADE JUAN LOCATION: [facility] : 36 UNIT #: [id number] AGE: [address]: Oscar Holley MD SEX: F ORDER DR: [id number] [facility] [address] [place], [place] [address] [id number] O MR#: [id number] [facility] #: [id number] NAME: JADE JUAN : 1935 SEX: F STUDY DATE/TIME: 04/24/2017 9:41 UNIT: CCA ROOM: STUDY DESCRIPTION: CT Angio Abdomen and Pelvis Attending Physician: Oscar Holley Jr., M.D. Ordering Physician: Oscar Holley Jr., M.D. Primary Care Physician: Primary Care Physician No MEDICAL IMAGING REPORT This report is preliminary unless electronic signature is present EXAM CT angiogram of the abdomen and pelvis with bilateral lower extremity runoff INDICATION Lower abdominal pain for 2 months. The patient had a cholecystectomy 2 weeks ago. She had a CT scan performed April 07, 2017 which showed aneurysmal dilatation of the abdominal aorta. TECHNIQUE Axial CT images were obtained from the dome of the diaphragm through both lower extremities following the administration of intravenous contrast material. Following this 3-D reformatted images were obtained. This CT exam was performed with one or more of the following radiation dose reduction techniques: automatic exposure control, adjustment of mA and/or kV according to patient size, and iterative reconstruction. FINDINGS Images through the lung bases demonstrate background emphysematous changes. Patient does have atherosclerotic involvement of the abdominal aorta. This does extend into the origins of the visceral vessels probably resulting in some mild narrowing at the origin of the celiac axis and perhaps some minimal narrowing also involving the superior mesenteric artery. This patient has probably near occlusive stenosis involving the proximal right renal artery. There is probably about a 40% stenosis of the proximal left renal artery which shows some areas of alternating narrowing dilatation, however this is favored to be atherosclerotic in nature given patient's age and lack of similar findings elsewhere. There is bilobed fusiform aneurysmal dilatation of the infrarenal abdominal aorta. More proximally it measures about 3.1 x 3.0 cm and more distally measures 3.6 x 3.4 cm. A large volume of intraluminal mural thrombus is seen. Relatively mild disease is identified within the distal abdominal STS. [facility] A Service of [facility] RADIOLOGY TEXT RESULTS PATIENT: JADE JUAN LOCATION: [facility] : 36 UNIT #: [id number] AGE: [address]: Oscar Holley MD SEX: F ORDER DR: aorta. Patient does have focal intimal flaps seen within the common iliac arteries bilaterally although flow is certainly seen distal to these areas. Internal iliac arteries are patent bilaterally. No significant stenosis of the external iliac arteries on either side is noted. The right common femoral artery is widely patent as are the patient's right profunda femoris and superficial femoral arteries. No flow-limiting stenosis of the right popliteal artery is seen and the patient is suspected to have three-vessel continuous runoff to the right foot although the vessels are somewhat difficult to see distally probably secondary to timing of contrast bolus rather than to any vascular issue. The left common femoral artery is also widely patent and again no stenosis of the patient's left profunda femoris or superficial femoral artery is seen. Left popliteal artery is patent and without significant stenosis. The patient's left anterior tibial artery is definitely continuous to the foot. Left peroneal artery can be seen as far as the ankle. Left posterior tibial artery potentially occludes within the distal calf. Again some of this may be related to timing of the contrast bolus rather than to actual occlusion of the vessel. The spleen appears unremarkable. Tiny enhancing focus is seen within the medial hepatic segment which is nonspecific but certainly could reflect a flash-filling hemangioma. I do question if this distal esophagus is somewhat thick-walled. Correlation with any evidence of esophagitis is suggested. The patient does have a fluid collection seen within the gallbladder fossa measuring 3.8 x 2.5 cm. It does contain some bubbles of gas within it. This may be related to immediate postoperative period. I do not see any convincing evidence of rim enhancement but the possibility of an abscess really cannot be excluded. The pancreas is atrophic with some prominence of the distal pancreatic duct measuring up to about 6.0 mm in size and common bile duct is also dilated at 9.0 mm. Both of these findings were present on the prior study. Adrenal glands appear unremarkable. There is a decreased attenuation identified within the inferior pole of the right kidney which I think likely reflect the sequela of prior insults. Certainly there is some areas of cortical thinning within both kidneys. The appendix is visualized and is within normal limits. There is colonic diverticulosis without evidence of diverticulitis. Uterus appears unremarkable. No free fluid or adenopathy is seen within the pelvis. The patient does appear to be osteoporotic and is status post left hip arthroplasty. IMPRESSION 1. Bilobed fusiform aneurysmal dilatation of the infrarenal abdominal aorta measuring up to 3.1 x 3.0 cm proximally and 3.6 x 3.4 cm slightly more distally, although it tapers to a normal caliber at its bifurcation. 2. Focal intimal flaps identified within the common iliac arteries bilaterally without evidence of definite stenosis. 3. This patient has three vessel continuous runoff to the right foot. [facility] A Service of [facility] RADIOLOGY TEXT RESULTS PATIENT: JADE JUAN LOCATION: [facility] : 36 UNIT #: [id number] AGE: [address]: Oscar Holley MD SEX: F ORDER DR: There is at least two vessel continuous runoff to the left foot. Full assessment of distal vessels is difficult to assess as the vessels are not well opacified distally. I am uncertain if the appearance is related to timing of the contrast bolus versus atherosclerotic disease, although I would probably favor the former. 4. Patient does have some atherosclerotic involvement seen at the origins of the celiac axis and superior mesenteric artery. This is resulting in mild narrowing of the origins of both vessels. Patient has severe stenosis seen involving the proximal right renal artery and there is some additional narrowing seen within the left renal artery as well although I would grade this as more in the range of about 40%. 5. Patient is status post cholecystectomy. There is a fluid collection seen within the gallbladder fossa measuring up to 3.8 x 2.5 cm. It does contain some gas within it. This is perhaps related to recent postoperative change. It does not really appear to have any rim enhancement but the possibility of certainly developing abscess is not excluded. 6. Patient does have some stable dilatation of the distal pancreatic duct and the common bile duct. 7. Please see the body of the report for any other additional incidental findings. Please note findings were reviewed with Dr. Holley following the dictation. Dictated by... Diane Ram M.D. THIS IS AN ELECTRONICALLY VERIFIED REPORT Diane Ram M.D. at 04/26/2017 3:27 PM NAT/chidi TD: 04/26/2017 08:54 JOB #: [id number] MEDICAL IMAGING REPORT Page 1 of 1 COPY
[2017-04-24 10:35] LABS: POC - CREATININE 0.97 mg/dL (0.44-1.03)
== END | disposition home or self-care (01) ==
LOC: CCAT 08:28
PROVIDERS: Surgery
DX: Z48.89 Encounter for other specified surgical aftercare (principal); R10.30 Lower abdominal pain, unspecified; I71.4 Abdominal aortic aneurysm, without rupture; K55.1 Chronic vascular disorders of intestine; I70.8 Atherosclerosis of other arteries; I70.1 Atherosclerosis of renal artery; K83.8 Other specified diseases of biliary tract; Z90.49 Acquired absence of other specified parts of digestive tract
CPT/HCPCS: 73706; 74174; 82565; Q9967

== ENCOUNTER 2017-05-01 10:13 | Emergency (ER) | payer MEDICARE, OTHER ==
--- NOTE | ~2017-05-01 | CT4 ---
[facility] A Service of [facility] RADIOLOGY TEXT RESULTS PATIENT: JADE JUAN LOCATION: SED : 37 UNIT #: [id number] AGE: [address]: Caleb Brush MD SEX: F ORDER DR: [id number] [place] [id number] E MR#: [id number] Acc #: [id number] NAME: JADE JUAN : 1935 SEX: F STUDY DATE/TIME: 05/01/2017 12:27 UNIT: SED ROOM: STUDY DESCRIPTION: CT Abd and Pelv Wo Cont Attending Physician: Caleb Brush M.D. Ordering Physician: Caleb Brush M.D. Primary Care Physician: No Primary Care Physician MEDICAL IMAGING REPORT This report is preliminary unless electronic signature is present. EXAM CT abdomen and pelvis without contrast. INDICATIONS Right-sided abdominal pain for [address] of the abdomen and pelvis was performed without contrast. Coronal and sagittal reformatted images were obtained. This CT exam was performed with one or more of the following radiation dose reduction techniques: automatic exposure control, adjustment of mA and/or kV according to patient size, and iterative reconstruction. COMPARISON Comparison with CT angiogram, 04/24/2017. FINDINGS Lung bases are clear. The liver is unremarkable. Redemonstrated is a small fluid collection within the gallbladder fossa with a couple tiny foci of air. Patient has had a recent cholecystectomy. The fluid collection is smaller, and likely reflects a resolving postoperative collection. The spleen is unremarkable. The kidneys are unremarkable. The adrenal glands are unremarkable. Pancreas is unremarkable. Stable 3.5 cm infrarenal abdominal aortic aneurysm. PELVIS: The colon is unremarkable. The appendix is normal. No evidence for free fluid. Bone windows demonstrate postoperative changes of the left hip. IMPRESSION 1. There are no acute findings in the abdomen or pelvis. 2. Small fluid collection of the gallbladder fossa again noted in this patient with recent cholecystectomy. It has decreased in size and [facility] A Service of [facility] RADIOLOGY TEXT RESULTS PATIENT: JADE JUAN LOCATION: SED : 37 UNIT #: [id number] AGE: [address]: Caleb Brush MD SEX: F ORDER DR: likely represents a resolving postoperative collection. 3. Stable infrarenal abdominal aortic aneurysm. Dictated by... Elmo Valente M.D. THIS IS AN ELECTRONICALLY VERIFIED REPORT Elmo Valente M.D. at 05/02/2017 7:25 PM NYA/darvin TD: 05/01/2017 15:11 JOB #: [id number] MEDICAL IMAGING REPORT Page 1 of 1
[~2017-05-01 10:13] MED LIST changes: -ALDACTONE25 MG PO; -AMITIZA24 MCG PO; -CELEXA10 M1 PO; -CLOPIDOGREL75 MG PO; -HYDROCODON-ACE1 EAC7 PO; -LINZESS145 MCG PO; -NORVASC10 MG PO
[2017-05-01 11:24] LABS: BASOPHIL# 0.1 X10e3 (0-0.3); EOSINOPHIL# 0.1 X10e3 (0-0.7); EOSINOPHIL% 1.1 % (0.0-7.0); HEMATOCRIT 37.9 % (35.0-45.0); HEMOGLOBIN 12.8 gm/dL (12.0-16.0); LYMPHOCYTE# 1.6 X10e3 (1.0-3.5); LYMPHOCYTE% 23.7 % (17.0-45.0); MEAN CELL VOLUME 87.1 FL (83-96); MEAN CORPUSCULAR HEMOGLOBIN 29.4 PG (28-34); MEAN CORPUSCULAR HGB CONC 33.7 g/dL (30-36); MEAN PLATELET VOLUME 6.9 FL (6.5-11.5); MONOCYTE# 0.4 X10e3 (0-1.0); MONOCYTE% 5.2 % (3.0-12.0); NEUTROPHIL# 4.7 X10e3 (1.5-7.1); PLATELET COUNT 301 X10e3 (140-420); RED BLOOD COUNT 4.35 X10e (3.90-5.30); RED CELL DISTRIBUTION WIDTH 14.9 % (11.0-15.5); WHITE BLOOD COUNT 6.8 X10e3 (4.0-10.5)
[2017-05-01 11:26] LABS: ALBUMIN SERUM 4.3 g/dL (3.5-5.0); BILIRUBIN, DIRECT 0.1 mg/dL (0.0-0.2); BILIRUBIN,INDIRECT 0.7 mg/dL (0.0-0.9); BILIRUBIN,TOTAL 0.8 mg/dL (0.2-2.0); CALCIUM SERUM 8.6 mg/dL (8.4-10.2); CREATININE SERUM 0.9 mg/dL (0.6-1.4); DIFF IND NO; POTASSIUM 3.3 mmol/L (3.5-5.1); PROTEIN TOTAL SERUM 7.4 g/dL (6.0-8.3)
[2017-05-01 12:11] LABS: URINE SOURCE CLEAN CATCH
[2017-05-01 12:14] LABS: URINE APPEARANCE CLEAR; URINE BILIRUBIN NEG (NEG); URINE BLOOD TRACE-INTACT (NEG); URINE COLOR YELLOW; URINE GLUCOSE NEG (NORM); URINE KETONE NEG (NEG); URINE LEUKOCYTE ESTERASE TRACE (NEG); URINE NITRATE NEG (NEG); URINE PROTEIN NEG (NEG); URINE UROBILINOGEN 0.2 MG/DL (NORM)
[2017-05-01 12:22] LABS: CULTURE INDICATED? YES; MICRO INDICATED? YES; URINE BACTERIA 1+ (NEG); URINE RBC 0-2 /[HPF] (0-2)
[2017-05-01 12:23] LABS: URINE AMORPHOUS SEDIMENT AMORP URATES; URINE SQUAMOUS EPITHELIAL CELL OCCAS /[HPF]
== END 2017-05-01 18:13 ==
LOC: SED 10:13
PROVIDERS: Emergency Medicine
DX: R10.84 Generalized abdominal pain (principal); I20.9 Angina pectoris, unspecified; K55.1 Chronic vascular disorders of intestine; R82.90 Unspecified abnormal findings in urine; I48.91 Unspecified atrial fibrillation; E78.5 Hyperlipidemia, unspecified; I10 Essential (primary) hypertension; K21.9 Gastro-esophageal reflux disease without esophagitis; I71.4 Abdominal aortic aneurysm, without rupture; Z90.49 Acquired absence of other specified parts of digestive tract; Z79.899 Other long term (current) drug therapy
CPT/HCPCS: 36415; 74176; 80048; 80076; 81003; 82150; 83605; 83690; 85025; 87086; 96361; 96374; 96375; 96376; 99285; J2270; J2405

== ENCOUNTER 2017-05-23 13:35 | Observation (INO) | payer MEDICARE, OTHER ==
[~2017-05-23] VITALS: Ht 170.2 cm; Wt 50.6 kg
--- NOTE | ~2017-05-23 | EKG ---
PATIENT: JADE JUAN UNIT #: [id number] Ventricular Rate: 66 BPM Atrial Rate: 66 BPM P-R Interval: 184 ms QRS Duration: 90 ms Q-T Interval: 422 ms QTC Calculation(Bezet): 442 ms P Alpha: -10 degrees Calculated R Alpha: 28 degrees Calculated T Alpha: 76 degrees Diagnosis Line: Normal sinus rhythm with sinus arrhythmia Diagnosis Line: Normal ECG Diagnosis Line: When compared with ECG of 17-APR-2017 15:31, Diagnosis Line: QT has shortened Diagnosis Line: Confirmed by SHIVA SHARMA MD ([id number]) on 05/23/2017 Diagnosis Line: 7:59:53 PM INTERPRETING MD: ZACHARY HAWKINS
--- NOTE | ~2017-05-23 | HP ---
Unit #: [id number] #: [id number] Patient: JADE JUAN [id number] [place], [place] [address] [id number] I MR#: [id number] NAME: JADE JUAN ROOM: 565 Age: 82 Sex: F Admission Date: 05/23/2017 : 1935 Attending Physician: Lara Arevalo M.D. Primary Care Physician: No Primary Care Physician HISTORY AND PHYSICAL CHIEF COMPLAINT Syncope. HISTORY OF PRESENT ILLNESS The patient is an 82-year-old female with past medial history of postural hypotension and recurrent syncope, chronic abdominal pain, GERD, hypertension, osteoporosis, arthritis, breast cancer, who presented to the emergency department for evaluation of the above. Of note, the patient was hospitalized at [facility] May 01 through May 06, 2017 for abdominal pain. She was seen in consultation by gastroenterology, underwent gastric emptying study that was normal. She also had a right upper quadrant ultrasound that showed absence of the gallbladder, nonobstructive common bile duct. A 3.7 cm abdominal aortic aneurysm was also noted. Gastroenterology attributed the abdominal pain to recurrent constipation, ischemia, bowel spasms. She was given Amitiza, as well as Bentyl. The abdominal pain has persisted. She was also seen by Vascular Surgery. She had mesenteric artery stenosis that was thought to be not significant; however, she did have bilateral stenosis of the renal arteries. A right renal artery stent was placed. She was discharged to rehab. The patient returned home on May 21, 2017. Since coming home from rehab the patient's abdominal pain has persisted. The pain is in the lower abdomen. It is intermittent in nature. She denies any vomiting. She has had constipation. Today she apparently went from sitting to standing and felt like she would "pass out." She was witnessed by family to be standing, holding onto the wall but unresponsive. They were able to get her in a chair and she did not actually fall. She does have a history of recurrent syncope. She has seen Dr. Dickson. She was previously on midodrine and Florinef. However, per the discharge summary from [facility], midodrine was recently discontinued due to the patient's hypertension and renal artery stent placement. Florinef was also decreased. In the emergency department the patient's initial pulse and blood pressure were 65 and 160/83 respectively. I was told that the patient was markedly orthostatic; however, I do not see it documented. She was given 1 L of normal saline. She is being admitted to [facility] for evaluation and further treatment. PAST MEDICAL HISTORY 1. Admission to [facility] May 01 through May 06, 2017 for abdominal pain. Please see HPI for details. The patient underwent Unit #: [id number] #: [id number] Patient: JADE JUAN right renal artery stent placement. Abdominal pain was thought to be multifactorial in etiology with constipation, ischemia, bowel spasms all contributing. She was discharged to rehab on Linzess and Bentyl. It is unclear if she has been taking these medications. Also of note, the patient's midodrine was discontinued. Florinef was decreased. 2. Postural hypotension. Previously on midodrine and Florinef with history of recurrent syncope. 3. GERD. 4. Osteoporosis. 5. Osteoarthritis. 6. Breast cancer, status post lumpectomy. 7. Two-D echo in 2015 that showed an ejection fraction of 55% to 60% with mild to moderate aortic regurgitation but no aortic stenosis. 8. Cardiolite December 26, 2015 showed no stress-induced ischemia. Ejection fraction was 83%. 9. Renal artery stenosis, status post right renal artery stent placement. PAST SURGICAL HISTORY 1. EGD and colonoscopy. 2. Right renal artery stent. 3. Tonsillectomy. 4. Left breast lumpectomy. 5. Left hip surgery. SOCIAL HISTORY The patient lives alone but family checks on her frequently. There is no tobacco or alcohol use. FAMILY HISTORY Family history is notable for her dad having a cerebrovascular accident. ALLERGIES No known allergies. HOME MEDICATIONS Per the discharge summary from [facility] include: 1. Acetaminophen 325 mg q.6 h. p.r.n. 2. Alendronate 70 mg weekly. 3. Amlodipine 10 mg daily. 4. Aspirin 81 mg daily. 5. Bentyl 10 mg b.i.d. 6. Calcium carbonate 600 mg. 7. Carafate t.i.d. 8. Levothyroxine 112 mcg daily. 9. Linzess 145 mg daily. 10. MiraLAX 17 g daily. 11. Multivitamin daily. 12. [place] 5/325 b.i.d. 13. Pantoprazole 20 mg daily. 14. Plavix 75 mg daily. 15. Potassium 20 mEq. 16. Spironolactone 25 mg. I do not see Linzess listed however it was mentioned as a discharge medication. Unit #: [id number] #: [id number] Patient: JADE JUAN Home medications will need to be reviewed and verified. REVIEW OF SYSTEMS A complete review of systems is negative except as indicated in the HPI. The patient has lost about 20 pounds over the past two to three months. She has had decreased appetite. She also reports constipation with last bowel movement being May 18, 2017. DIAGNOSTIC STUDIES CARDIOVASCULAR: EKG shows normal sinus rhythm with sinus arrhythmia and a 66 beats per minute. IMAGING: Chest x-ray shows nothing acute. LABORATORY: Complete blood count notable for hemoglobin and hematocrit of 10.7 and 32 respectively. INR is 1. Comprehensive metabolic panel notable for AST and ALT of 66 and 93 respectively. PHYSICAL EXAMINATION VITAL SIGNS: Temperature 98.1. Pulse 65. Respirations 18. Blood pressure 160/83. Oxygen saturation is 100% on room air. GENERAL: The patient is a female who is awake and alert, in no acute distress. HEENT: The head is atraumatic. Mucous membranes are moist. NECK: Neck is supple. Trachea is midline. CARDIOVASCULAR: Regular rate and rhythm. LUNGS: Lungs are clear to auscultation bilaterally with no increased work of breathing. ABDOMEN: Abdomen is soft, nontender, with bowel sounds present in all four quadrants. EXTREMITIES: Nontender with no pedal edema. NEUROLOGIC: The patient is awake and alert. She follows commands. PSYCHIATRIC: Mood and affect are normal. The patient is cooperative. SKIN: Skin of examined areas is warm and dry. ASSESSMENT The patient is an 82-year-old female with: 1. Near syncope, likely related to #2. 2. Postural hypotension. The patient was previously on midodrine and Florinef. Midodrine was discontinued during recent hospital stay at [facility]. I was told that the patient had orthostatic hypotension in the emergency department. I do not see it documented. 3. Transaminitis. 4. Normocytic anemia. The patient's hemoglobin was 12.8 on May 01, 2017. It is 10.7 today. 5. Abdominal pain, chronic. The patient is status post cholecystectomy. She was recently seen by gastroenterology at [facility]. Pain was thought to be multifactorial in etiology. She sees Dr. Crystal as an outpatient. 6. Gastroesophageal reflux disease. 7. Weight loss. The patient reports a 20 pound weight loss over the past couple of months. 8. Renal artery stenosis, status post stent placement. 9. Hypertension. 10. Osteoporosis. 11. Arthritis. 12. Breast cancer, status post lumpectomy. Unit #: [id number] #: [id number] Patient: JADE JUAN PLAN 1. Admit for observation to intermediate level. 2. Normal saline at 75 mL an hour. 3. Advance diet to healthy heart as tolerated. 4. Bedrest. 5. Fall precautions. 6. Orthostatics q. shift. 7. Serial cardiac enzymes. 8. Consult Dr. iDckson regarding near syncope and postural hypotension. 9. Check urinalysis. 10. Consult Dr. Crystal regarding abdominal pain, persistent, and weight loss. 11. Repeat labs in the morning. 12. SCDs for DVT prophylaxis. 13. Repeat labs in the morning. 14. Additional workup and consultants based on above. Dictated by Lara Arevalo M.D. TR/kaylee TD: 05/23/2017 21:44 JOB #: [id number] HISTORY AND PHYSICAL Page 1 of 1 X Lara Arevalo MD X HISTORY AND PHYSICAL
--- NOTE | ~2017-05-23 | CO ---
Unit #: [id number] #: [id number] Patient: JADE JUAN [id number] [facility]. [place], [place] [address] [id number] MR#: [id number] NAME: JADE JUAN ROOM: 565 Age: 82 Sex: F Admission Date: 05/23/2017 : 1935 Attending Physician: Margret Sharpe M.D. Primary Care Physician: Primary Care Physician No CONSULTATION REPORT REASON FOR CONSULT Near syncope. HISTORY OF PRESENT ILLNESS This is a pleasant 82-year-old, , elderly female, who is followed by Dr. Dickson in the office. She has a past medical history of postural hypotension, recurrent syncope, GERD, hypertension, breast cancer, status post lumpectomy, 3.7 cm abdominal aortic aneurysm, renal artery stenosis, status post renal artery stent at [facility] recently. The patient reports she was at home yesterday in her typical state of health. She went to get up from in a sitting position and her son was present states she became glazed over, felt very lightheaded and dizzy. She immediately sat down. However, the son was concerned and called EMS. She denied any complaints of chest pain, shortness of air, palpitations during this episode. She never lost consciousness. On arrival, she was noted to have a blood pressure in the 60. In the emergency room, the patient was found to be profoundly orthostatic. She received 1 L of normal saline. She has been previously on midodrine and Florinef and it appears she was still on these medications. The patient states she has been taking them. At present, she is resting in bed. She feels okay. We did again repeat blood pressures, which showed a pressure of 184/111 lying, 118/80 sitting and 71/47 standing. The patient also had an EKG on arrival, which showed normal sinus rhythm, rate of 66 beats per minute, QTc interval 442 msec. No acute ischemic change. It is notable she has been evaluated recently with 2D echocardiogram in 2016, which shows an LVEF of 55% to 60% with [id number] AR. No aortic stenosis. She also had a Lexiscan Cardiolite in 2016, which showed no stress-induced ischemia and Holter monitor in 2016, which showed frequent supraventricular ectopy, but heart rates were less than 100. No significant pauses. No significant ventricular ectopy. We were asked to see the patient for evaluation of the above. PAST MEDICAL HISTORY 1. Postural hypotension, maintained on midodrine and Florinef. 2. Recurrent syncope. 3. GERD. 4. Hypertension. 5. Breast cancer, status post lumpectomy. 6. 3.7 cm abdominal aortic aneurysm. 7. Renal artery stenosis, status post renal artery stent of the right at [facility] recently. 8. Osteoporosis. Unit #: [id number] #: [id number] Patient: JADE JUAN 9. Osteoarthritis. PAST SURGICAL HISTORY 1. Right renal artery stent. 2. Tonsillectomy. 3. Left breast lumpectomy. 4. Left hip surgery. 5. EGD and colonoscopy, which were done recently at [facility]. SOCIAL HISTORY The patient lives alone; however, her son and daughter check on her frequently. She denies illicit drugs. No tobacco or alcohol use. FAMILY HISTORY Positive for father with CVA. HOME MEDICATIONS ProAmatine 10 mg p.o. t.i.d., Protonix 20 mg p.o. daily, Levoxyl 112 mcg p.o. daily, MiraLAX 17 g p.o. daily, alendronate sodium 70 mg p.o. every week, Florinef 0.1 mg p.o. b.i.d., aspirin 81 mg p.o. daily, calcium plus D one tablet p.o. t.i.d., cyclosporine 100 mg both eyes, daily 2 drops to both eyes, glucosamine chondroitin capsule, multivitamin, Amitiza 24 mcg p.o. b.i.d., Klor-Con 20 mEq p.o. daily, amiodarone 100 mg p.o. daily, Bentyl 10 mg p.o. b.i.d., acetaminophen 325 mg p.o. q.4 hours p.r.n. REVIEW OF SYSTEMS Positive for 20-pound weight loss over the last several months. However, the patient did recently have full gastroenterology workup with EGD, colonoscopy, as well as CT at [facility], reportedly normal. Abdominal cramping, positive for constipation. Positive for decreased appetite. Rest of her review of systems was negative except for what was stated above in the HPI. DIAGNOSTIC STUDIES LABORATORY RESULTS: Hemoglobin 10.9, hematocrit 33, WBCs 8.8, platelet count 270. Electrolytes are within normal limits. Urinalysis shows 1+ leuk esterase, 5 to 10 wbc's. Urine culture is pending. IMAGING STUDIES: Chest x-ray shows calcified granulomas in the lung apices. No airspace infiltrate. Heart size is normal. Visualized osseous structures are unremarkable. No active disease. CARDIOVASCULAR STUDIES: EKG shows normal sinus rhythm with sinus arrhythmia, rate of 66 beats per minute. QTc interval 442 milliseconds. No acute ischemic changes noted. IMPRESSION 1. Dizziness with near syncope. 2. Significant postural hypotension. 3. History of hypertension. 4. Gastroesophageal reflux disease. 5. Renal artery stenosis, status post recent renal artery stent placement at [facility]. 6. Breast cancer, status post lumpectomy. 7. 2D echocardiogram; left ventricular ejection fraction of 55% to 60% in 2016, [id number] aortic regurgitation, no aortic stenosis. 8. Lexiscan Cardiolite in 2016, no stress-induced ischemia. 9. Holter monitor, 07/2016, frequent supraventricular ectopy. However, Unit #: [id number] #: [id number] Patient: JADE JUAN rates are less than 100. No significant pauses. No significant ventricular ectopy. PLAN Repeat orthostatic blood pressures have been checked and the patient does have significant postural hypotension. She has been educated on behavioral modification, which includes slow position changes, ROBB hose and compliance with medication therapy. At this time, we will continue her ProAmatine as ordered and increase her Florinef to 0.2 mg p.o. b.i.d. with first dose to be given now. She has undergone recent cardiac workup. There was no reason to repeat that at this time. Behavioral modifications will be discussed with the son as well on arrival. It was also notable that the patient does report a 20-pound weight loss over the last several months and abdominal pain; however, she has been at [facility] just recently and has been seen by Gastroenterology and a full GI workup was completed. The patient reports she had EGD, colonoscopy as well as CT of her abdomen and they have been unable to find any source of her pain. Dr. Dickson has seen and evaluated her and feels like she is okay for discharge from cardiac standpoint with the increased dose of Florinef. Dictated by... Corinne Molina/gillian TD: 05/25/2017 05:58 JOB #: [id number] CONSULTATION REPORT Page 1 of 1 X Sybil Gibbs APRN X CONSULTATION REPORT
--- NOTE | ~2017-05-23 | CR72 ---
[facility] A Service of [facility] & [facility] RADIOLOGY TEXT RESULTS PATIENT: JADE JUAN LOCATION: [facility] [id number] : 36 UNIT #: [id number] AGE: [address]: Margret Sharpe MD SEX: F ORDER DR: [id number] [facility] [address] [facility]. [place], [place] [address] [id number] I MR#: [id number] Acc #: [id number] NAME: JADE JUAN : 1935 SEX: F STUDY DATE/TIME: 05/23/2017 14:46 UNIT: [facility] ROOM: [facility] STUDY DESCRIPTION: CR Chest Single View Portable Attending Physician: Lara Arevalo M.D. Ordering Physician: Jean Marie Lin M.D. Primary Care Physician: Primary Care Physician No MEDICAL IMAGING REPORT This report is preliminary unless electronic signature is present EXAM Portable chest INDICATIONS Shortness of breath since last night, syncope. COMPARISON 07/25/2016 FINDINGS Calcified granulomas in the lung apices. No airspace infiltrate. Heart size normal. Visualized osseous structures are unremarkable. IMPRESSION No active disease. Dictated by... Elmo Valente M.D. THIS IS AN ELECTRONICALLY VERIFIED REPORT Elmo Valente M.D. at 05/24/2017 3:52 PM ARS/psc TD: 05/23/2017 21:58 JOB #: [id number] MEDICAL IMAGING REPORT Page 1 of 1 COPY
--- NOTE | ~2017-05-23 | A ---
[facility] Nutrition Therapy DATE: 05/24/17 Patient: JADE JUAN Physician: CESARIO Address: [address] Room/Bed: [address] [place] [address], Zip: [place] [address] Admit Date: 05/23/17 Date of : [birth year] Height: 5 7 Weight: 111 50.6 NUTRITIONAL ASSESSMENT: REASON: Low BMI 82 y/o female admitted for syncope PMH: hypotension, GERD, osteoporosis, osteoarthritis, breast cancer, s/p renal artery stent Anthropometrics: ht: 5'7" wt: 111# (50 kg) BMI 17, 82% IBW Labs: Alt 69 Meds: cordorone, miralax, protonix, synthroid I/O & Bowel function: 830/902. BM 05/18 Skin Integrity: Lap sites- abdomen; scar- LT chest. No edema. Estimated Nutrition Needs: Increased 2' low BMI Assessment: Chart reviewed, events noted. Pt seen for low BMI. RD cad intern spoke with pt at bedside. The pt reports having no appetite at all, she reports eating 50% of her breakfast of toast and apple sauce (tray at bedside). Pt reports having very severe stomach pain and has not had a BM since 05/18. The pt also reports a 40# weight loss in the past 4 months, her previous normal weight being ~150#, indicating a 26% severe weight loss. Pt was agreeable to chocolate ensure BID + Magic Cup with dinner. Pt also inquired about taking an appetite stimulant. RD cad intern encouraged adequate intake of meals and supplements, will continue to follow. Dx: Inadequate oral intake r/t poor appetite, nausea, abdominal pain AEB intake >50% per pt and tray, low BMI of 17, 82%ibw Intervention: 1. Healthy heart diet 2. Chocolate ensure + magic cup supplements Monitoring, Evaluation and Goals: 1. Weight; prevent weight loss, promote weight gain and healthy weight maintenance 2. Intake; consume/tolerate >50% all meals and supplements 3. GI; promote regular GI function Recommendations: 1. Ensure chocolate BID + Magic Cup with dinner + continue current healthy heart diet [facility] Nutrition Therapy DATE: 05/24/17 Patient: JADE JUAN Physician: CESARIO Address: [address] [facility] Room/Bed: [address] [place] [address], Zip: [place] [address] Admit Date: 05/23/17 Date of : [birth year] Height: 5 7 Weight: 111 50.6 2. This pt would benefit from an appetite stimulant such as Megace, to stimulate po intake. 3. Encourage adequate PO intake. RD will f/u per protocol as pt is at moderate nutritional risk. Respectfully, GURU QUINN, [employer] Manager Lina Nagel MS, RD, LD Food and Nutritional Services [facility] cc: client file
[2017-05-23 16:07] LABS: BASOPHIL# 0.1 X10e3 (0-0.3); EOSINOPHIL# 0.1 X10e3 (0-0.7); EOSINOPHIL% 1.5 % (0.0-7.0); HEMOGLOBIN 10.7 gm/dL (12.0-16.0); LYMPHOCYTE# 1.5 X10e3 (1.0-3.5); MEAN CELL VOLUME 88.8 FL (83-96); MEAN CORPUSCULAR HEMOGLOBIN 29.6 PG (28-34); MEAN CORPUSCULAR HGB CONC 33.3 g/dL (30-36); MEAN PLATELET VOLUME 6.9 FL (6.5-11.5); MONOCYTE# 0.6 X10e3 (0-1.0); MONOCYTE% 7.9 % (3.0-12.0); NEUTROPHIL# 5.2 X10e3 (1.5-7.1); NEUTROPHIL% 69.6 % (40-75); PLATELET COUNT 292 X10e3 (140-420); RED BLOOD COUNT 3.61 X10e (3.90-5.30); RED CELL DISTRIBUTION WIDTH 16.2 % (11.0-15.5); WHITE BLOOD COUNT 7.5 X10e3 (4.0-10.5)
[2017-05-23 16:09] LABS: DIFF IND NO
[2017-05-23 16:22] LABS: PROTHROMBIN TIME (PATIENT) 10.9 SECONDS (10.0-11.7)
[2017-05-23 16:44] LABS: BILIRUBIN, DIRECT 0.1 mg/dL (0.0-0.2); BILIRUBIN,INDIRECT 0.7 mg/dL (0.0-0.9); BILIRUBIN,TOTAL 0.8 mg/dL (0.2-2.0); CALCIUM SERUM 8.9 mg/dL (8.4-10.2); GLOM FILT RATE Estimated 52.8 mL/min (>60); POTASSIUM 3.9 mmol/L (3.5-5.1); PROTEIN TOTAL SERUM 6.6 g/dL (6.0-8.3)
[2017-05-23 18:40] LABS: URINE SOURCE CLEAN CATCH
[2017-05-23 18:44] LABS: URINE APPEARANCE CLEAR; URINE BILIRUBIN NEG (NEG); URINE BLOOD NEG (NEG); URINE COLOR YELLOW; URINE GLUCOSE NEG (NEG); URINE KETONE NEG (NEG); URINE LEUKOCYTE ESTERASE 1+ (NEG); URINE NITRATE NEG (NEG); URINE PH 6.5 (5-8); URINE PROTEIN NEG (NEG); URINE SPECIFIC GRAVITY 1.018 (1.003-1.035)
[2017-05-23 18:46] LABS: URBCS1 AUWI 0-2 /[HPF] (0-2); URINE BACTERIA AUWI NEG (NEGATIVE); URINE SQUAMOUS EPITHELIAL CELL NONE SEEN /[HPF]
[2017-05-23 18:49] LABS: CULTURE INDICATED? NO
[2017-05-23 19:31] LABS: CK TOTAL 23 IU/L (26-140)
[2017-05-24 03:03] LABS: CK TOTAL 33 IU/L (26-140)
[2017-05-24 06:45] LABS: HEMOGLOBIN 10.9 gm/dL (12.0-16.0); MEAN CORPUSCULAR HEMOGLOBIN 29.4 PG (28-34); MEAN CORPUSCULAR HGB CONC 33.1 g/dL (30-36); RED BLOOD COUNT 3.71 X10e (3.90-5.30); RED CELL DISTRIBUTION WIDTH 16.3 % (11.0-15.5); WHITE BLOOD COUNT 8.8 X10e3 (4.0-10.5)
[2017-05-24 07:32] LABS: ALBUMIN SERUM 3.7 g/dL (3.5-5.0); BILIRUBIN,TOTAL 1.1 mg/dL (0.2-2.0); BUN/CREATININE RATIO 21.11; CALCIUM SERUM 8.8 mg/dL (8.4-10.2); CREATININE SERUM 0.9 mg/dL (0.6-1.4); POTASSIUM 3.8 mmol/L (3.5-5.1); PROTEIN TOTAL SERUM 5.9 g/dL (6.0-8.3)
[2017-05-24 07:34] LABS: CK TOTAL 24 IU/L (26-140)
[2017-05-24] MEDS ORDERED: CELEXA10 M1 PO (12:33)
[2017-05-24] MEDS ORDERED: CLOPIDOGREL75 MG PO (12:33)
[2017-05-24] MEDS ORDERED: NORVASC10 MG PO (12:33)
[2017-05-24] MEDS ORDERED: LINZESS145 MCG PO (12:33)
[2017-05-24] MEDS ORDERED: ALDACTONE25 MG PO (12:34)
[2017-05-24] MEDS ORDERED: HYDROCODON-ACE1 EAC7 PO (12:34)
[2017-05-24] MEDS ORDERED: AMITIZA24 MCG PO (16:25)
== END 2017-05-24 17:41 | disposition home or self-care (01) ==
LOC: CED 13:35 → CEDOF 18:09 → C5C 21:11
PROVIDERS: Emergency Medicine; Family Medicine
DX: R55 Syncope and collapse (principal); I95.1 Orthostatic hypotension; R74.0 Nonspecific elevation of levels of transaminase and lactic acid dehydrogenase [LDH]; D64.9 Anemia, unspecified; R10.9 Unspecified abdominal pain; K21.9 Gastro-esophageal reflux disease without esophagitis; R63.4 Abnormal weight loss; I10 Essential (primary) hypertension; M81.0 Age-related osteoporosis without current pathological fracture; I70.1 Atherosclerosis of renal artery; M19.90 Unspecified osteoarthritis, unspecified site; I73.9 Peripheral vascular disease, unspecified; K59.00 Constipation, unspecified; Z79.899 Other long term (current) drug therapy; Z85.3 Personal history of malignant neoplasm of breast; Z82.3 Family history of stroke
CPT/HCPCS: 36415; 71010; 80048; 80053; 80076; 81003; 82550; 82947; 84443; 84484; 85025; 85027; 85610; 87086; 93005; 96360; 99285; G0378